=== PATIENT | female | born 1990 | race Hispanic/Latino ===

== ENCOUNTER 2021-03-11 19:02 | Emergency (ER) | payer OTHER ==
--- NOTE | 2021-03-11 21:47 | EDPHYS ---
Physician Documentation [facility] Name: Stefanie Candelario Age: 30 yrs Sex: Female : 1990 Arrival Date: 03/11/2021 Time: 19:11 Bed Waiting Private MD: ED Physician Goran Guthrie HPI: 03/11 21:52 This 30 yrs old Female presents to ER via Ambulatory with complaints of Cough, kb Fever, Headache. 21:12 The patient or guardian reports cough, that is intermittent, described as mild, flu kb symptoms, low-grade fever. 21:52 Onset: The symptoms/episode began/occurred 3 day(s) ago. Severity of symptoms: At their kb worst the symptoms were moderate, in the emergency department the symptoms are unchanged. Modifying factors: The symptoms are alleviated by nothing, the symptoms are aggravated by nothing. Associated signs and symptoms: Pertinent positives: fever, Pertinent negatives: chest pain, diarrhea, ear ache, nausea, rhinorrhea, sore throat, vomiting. The patient has not experienced similar symptoms in the past. The patient has not recently seen a physician. Pt reports fever and cough for a few days. States her brother was diagnosed with covid recently. Historical: - Allergies: 20:00 No Known Allergies; sm5 - Home Meds: 20:00 amitriptyline Oral [Active]; sm5 - PMHx: 20:00 Headache; sm5 - PSHx: 20:00 None; sm5 - Immunization history:: Client reports receiving the 2nd dose of the Covid vaccine. ROS: 21:12 Cardiovascular: Negative for chest pain, palpitations, and edema. kb 21:12 Constitutional: Positive for fever, Negative for body aches, chills, fatigue, malaise, poor PO intake, weight loss. 21:12 Respiratory: Positive for cough, Negative for dyspnea on exertion, hemoptysis, orthopnea, pleurisy, shortness of breath, sputum production, wheezing. 21:12 Neuro: Positive for headache. 21:12 All other systems are negative. Exam: 21:12 Constitutional: This is a well developed, well nourished patient who is awake, alert, kb and in no acute distress. Head/Face: Normocephalic, atraumatic. ENT: Moist Mucous membranes Cardiovascular: Regular rate and rhythm with a normal S1 and S2. No gallops, murmurs, or rubs. No pulse deficits. Respiratory: Respirations even and unlabored. No increased work of breathing. Talking in full sentences Skin: Warm, dry with normal turgor. Normal color. MS/ Extremity: Pulses equal, no cyanosis. Neurovascular intact. Full, normal range of motion. Neuro: Awake and alert, GCS 15, oriented to person, place, time, and situation. Moves all extremities. Normal gait. Psych: Awake, alert, with orientation to person, place and time. Behavior, mood, and affect are within normal limits. Vital Signs: 19:59 BP 94 / 65; Pulse 75; Resp 17; Temp 97.2; Pulse Ox 100% ; Weight 41.28 kg; Height 4 ft. sm5 9 in. (144.78 cm); 19:59 Body Mass Index 19.69 (41.28 kg, 144.78 cm) sm5 MDM: 20:00 Patient medically screened. kb 21:01 Data reviewed: vital signs, nurses notes. Data interpreted: Pulse oximetry: on room air kb is 100 %. Interpretation: normal. Counseling: I had a detailed discussion with the patient and/or guardian regarding: the historical points, exam findings, and any diagnostic results supporting the discharge/admit diagnosis, lab results, the need for outpatient follow up, a family practitioner, to return to the emergency department if symptoms worsen or persist or if there are any questions or concerns that arise at home. 03/11 20:01 Order name: Flu; Complete Time: 20:50 kb 03/11 20:01 Order name: COVID-19 (Coronavirus) Document "Date of Onset" if Symptomatic kb Administered Medications: No medications were administered Disposition: 03/12 00:37 Co-signature as Attending Physician, Goran Guthrie MD. pkl Disposition Summary: 03/11/21 21:46 Discharge Ordered Location: Home kb Condition: Stable kb Diagnosis - Acute upper respiratory infection, unspecified kb Followup: kb - With: Emergency Department - When: As needed - Reason: Worsening of condition Followup: kb - With: Private Physician - When: 2 - 3 days - Reason: Recheck today's complaints, Continuance of care, Re-evaluation by your physician Discharge Instructions: - Discharge Summary Sheet kb - Upper Respiratory Infection, Adult, [id number] kb - Viral Respiratory Infection, [id number] kb Forms: - Medication Reconciliation Form kb - Thank You Letter kb - Antibiotic Education kb - Prescription Opioid Use kb Signatures: Dispatcher [employer] Beulah Coronado, LEONEL SIFUENTES-Goran Umana MD MD pkl Mazur, Sarah, RN RN sm5
--- NOTE | 2021-03-11 21:47 | ER ---
Nurse's Notes [facility] Name: Stefanie Candelario Age: 30 yrs Sex: Female : 1990 Arrival Date: 03/11/2021 Time: 19:11 Bed Waiting Private MD: Diagnosis: Acute upper respiratory infection, unspecified Presentation: 03/11 19:58 Chief complaint: Patient states: cough, headache and fever for the past few days. 5 19:58 Method Of Arrival: Ambulatory [facility] 19:59 Coronavirus screen: cough unrelated to allergies, fever, headache. Ebola Screen: No [facility] symptoms or risks identified at this time. Initial Sepsis Screen: Does the patient meet any 2 criteria? No. Patient's initial sepsis screen is negative. Does the patient have a suspected source of infection? No. Patient's initial sepsis screen is negative. Risk Assessment: Do you want to hurt yourself or someone else? Patient reports no desire to harm self or others. Onset of symptoms was March 08, 2021. 19:59 Acuity: YEIMI 3 5 Triage Assessment: 20:02 Headache History: The patient has had previous headaches. General: Appears in no 5 apparent distress. Behavior is cooperative. Pain: Complains of pain in head Pain currently is 5 out of 10 on a pain scale. Pain began 2-3 days ago. Also complains of no other associated symptoms. Neuro: No deficits noted. Level of Consciousness is awake, alert, Oriented to person, place, time, situation. Respiratory: Airway is patent Trachea midline Respiratory effort is even, unlabored. Historical: - Allergies: 20:00 No Known Allergies; sm5 - Home Meds: 20:00 amitriptyline Oral [Active]; sm5 - PMHx: 20:00 Headache; sm5 - PSHx: 20:00 None; sm5 - Immunization history:: Client reports receiving the 2nd dose of the Covid vaccine. Assessment: 21:46 Reassessment: pt seen by Beulah Santana NP and discharged by her from the [facility]. bb Vital Signs: 19:59 BP 94 / 65; Pulse 75; Resp 17; Temp 97.2; Pulse Ox 100% ; Weight 41.28 kg; Height 4 ft. 5 9 in. (144.78 cm); 19:59 Body Mass Index 19.69 (41.28 kg, 144.78 cm) [facility] ED Course: 19:11 Patient arrived in ED. am2 19:35 Beulah Santana FNP-C is [facility]. 19:35 Goran Guthrie MD is Attending Physician. kb 20:00 Triage completed. 5 20:06 Flu Sent. [facility] 20:06 COVID-19 (Coronavirus) Document "Date of Onset" if Symptomatic Sent. [facility] Administered Medications: No medications were administered Outcome: 21:46 Discharge ordered by . kb 21:47 Discharged to home ambulatory. bb 21:47 Condition: stable 21:47 Discharge instructions given to patient, Instructed on discharge instructions, follow up and referral plans. 21:47 Patient left the ED. bb Addendum: 03/14/2021 16:45 Addendum: COVID-19 Result: Positive result giiven to ED physician to notify pt. e b Physician was able to contact pt and pt was notified of positive COVID-19 swab result. Physician answered pt questions. Signatures: Beulah Santana FNP-C FNP-Ckb Ballard, Brenda, RN RN Honey Nunez am2 Nannette Christy Sarah, RN RN 5 Corrections: (The following items were deleted from the chart) 03/11 20:00 19:58 Chief complaint: Patient states: cough and fever for the past few days [place] [id number]
[2021-03-11 22:17] VITALS: BP 94/65; TEMP 97.2; O2SAT 100
== END 2021-03-11 21:47 | disposition home or self-care (01) ==
LOC: ER 19:02
DX: U07.1 COVID-19 (principal); J06.9 Acute upper respiratory infection, unspecified
CPT/HCPCS: 87804 ×2; 99283; U0002